=== PATIENT | female | born 1950 | race Caucasian/White ===

== ENCOUNTER 2018-10-09 12:16 | Inpatient (IN) | payer MEDICARE ==
[2018-10-09 12:58] LABS: #Lymphocytes 1.1 thou/uL (1.20-3.40); #Monocytes 0.8 thou/uL (0.11-0.59); #Neutrophils 12.1 thou/uL (1.40-6.50); %Basophils 0.2 % (0.0-1.0); %Eosinophils 0.3 % (0.0-10.0); %Lymphocytes 7.6 % (21.0-51.0); %Monocytes 5.7 % (0.0-10.0); %Neutrophils 86.2 % (42.0-75.0); Hemoglobin 13.9 g/dL (12.0-16.0); Mean Corpuscular HGB CONC 33.5 g/dL (32.0-36.0); Mean Corpuscular Hemoglobin 33.4 pg (27.0-31.0); Mean Corpuscular Volume 99.8 fL (78.0-98.0); Mean Platelet Volume 7.4 fL (7.4-10.4); Platelet Count 483 thou/uL (130-400); RBC Distribution Width 13.3 % (11.5-14.5); Red Blood Cell (RBC) Count 4.16 mill/uL (4.20-5.40); White Blood Cell (WBC) Count 14.1 thou/uL (4.8-10.8)
[2018-10-09 13:17] LABS: BUN (Urea Nitrogen) 41 mg/dL (9.8-20.1); Calc. Creatinine Clearance 0 mL/min (70-130); Calcium 8.1 mg/dL (7.8-10.44); Chloride 98 mmol/L (98-107); Estimated GFR-MDRD 23; Glucose 138 mg/dL (80-115); Potassium 3.6 mmol/L (3.5-5.1); Sodium 143 mmol/L (136-145)
[2018-10-09 13:21] LABS: Carbon Dioxide Less than 8 mmol/L (23-31)
[2018-10-09] MEDS ORDERED: Ondansetron PF 4 MG/2 ML Vial ONE (13:57)
[2018-10-09] MEDS ORDERED: Ondansetron ODT 4 MG TAB ONE (13:59)
[2018-10-09 14:13] LABS: Acetaminophen Less than 6.0 mcg/mL (10.0-30.0); Alcohol 211 mg/dL (Less than 10); Salicylate Less than 8.0 mg/dL (15.0-30.0)
[2018-10-09 14:17] LABS: Actual Bicarbonate (HCO3a) 5.8 mEq/L (22-28); Analyzer IN Cardio ER; Base Excess (BEa) -20.3 mEq/L (-2.0 to +3.0); Calcium, Ionized 0.99 mmol/L (1.12-1.30); Carboxyhemoglobin (COHb) 0.3 gm% (0.0-3.0); Hemoglobin (Hb) 13.5 g/dL (12.0-16.0); O2 Tension (PaO2) 103.7 mmHg (> 80.0); Potassium - ABG Lab 3.58 mmol/L (3.70-5.30)
[2018-10-09 14:18] LABS: CO2 Tension 16.2 mmHg (35.0-45.0); Puncture Site LB; pH, Arterial 7.18 (7.35-7.45)
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
--- NOTE | 2018-10-09 16:16 | RAD ---
AP view chest. HISTORY: Anxiety, chest pain. AP view chest obtained. EKG leads seen over the chest. Pedicle screws and surgical hardware seen in the row lower thoracic spine. Left-sided pleural effusion and pleural scarring seen. The right lung is well aerated. IMPRESSION: Patchy areas of density in the left lung base compatible with possible scar, atelectasis and/or pneumonia. There also appears to be a left-sided pleural effusion or left pleural scarring.
[2018-10-09 16:23] VITALS: BMI 18.8
[2018-10-09] MEDS: SODIUM BICARBONATE IV SCH (17:22)
[2018-10-09] MEDS: DEXTROSE IV SCH (17:22)
[2018-10-09] MEDS: NACL IV SCH (17:22)
[2018-10-09 17:26] LABS: Amphetamine Not Detected (NotDetected); Barbiturates Screen Not Detected (NotDetected); Benzodiazepine Screen Not Detected (NotDetected); Cocaine Metabolite Screen Not Detected (NotDetected); Medtox Control Line Valid? VALID (VALID); Medtox Reader # READER 4; Methadone Not Detected (NotDetected); Methamphetamine Not Detected (NotDetected); Opiate Screen Not Detected (NotDetected); Oxycodone Screen Not Detected (NotDetected); Phencyclidine (PCP) Not Detected (NotDetected); THC/Cannabinoid Screen Not Detected (NotDetected); Tricyclic Screen Detected (NotDetected)
--- NOTE | 2018-10-09 17:27 | PDOC.EVN ---
Event Note - Event Note Event Note: now admit to large doses concentrated alcohol. start iv loezepam and banabag
[2018-10-09] MEDS: Lorazepam 2 MG/ML VIAL SLOW IVP PRN (17:34)
[2018-10-09] MEDS ORDERED: Sodium Bicarb 50 MEQ/50 ML Abboject 8.4% SYRINGE IVP SCH (18:30)
[2018-10-09] MEDS ORDERED: Sodium Bicarb 50 MEQ/50 ML VIAL IVP SCH (18:45)
[2018-10-09] MEDS: cefTRIAXone\\ROCEPHIN 1 GM in Sodium Chloride 0.9% 100 ML IVPB SCH (19:03)
[2018-10-09] MEDS: Ondansetron ODT 4 MG TAB PO PRN (19:03)
--- NOTE | 2018-10-09 19:13 | CON ---
DATE OF CONSULTATION: 10/09/2018 HISTORY OF PRESENT ILLNESS: Karina Colbert is a 68-year-old female from [place], who apparently sees physicians at . She has multiple medical problems, but probably chronic pain. She went to the ER in [place] with symptoms of nausea, vomiting, and acute renal failure. She was transferred over here after she was found to have apparently some coffee-ground emesis and she was acidotic. Her creatinine was 2.2. Alcohol level was 290. When asked her, she says she drinks normally 2 glasses of wine daily, but drank a 5th of whisky today. She has chronic pain in the back and leg from previous injury. She is apparently a nonsmoker. PAST MEDICAL HISTORY: Pertinent for anxiety, chronic pain, and diabetes. PREVIOUS SURGERIES: Multiple surgeries on the spine, surgeries on the leg multiple times, cholecystectomy, and . 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 ALLERGIES: PENICILLIN. SULFA APPARENTLY. SOCIAL HISTORY: Tobacco, none. Drugs, none. Alcohol, as noted. HOME MEDICATIONS: 1. Phenergan 25 for nausea. 2. Tylenol No. 3. She takes up to 3 tablets a day, though she tells me she took only one. REVIEW OF SYSTEMS: Otherwise, 10-point negative. PHYSICAL EXAMINATION: GENERAL: She is awake, alert, and responsive. VITAL SIGNS: Heart rate is 100, respiratory rate 21, saturation is 98% on room air, and blood pressure 130/80. She is on a bicarb drip. CHEST: Decreased breath sounds. No wheezing. CARDIAC: Normal S1, S2. No gallops. ABDOMEN: No masses. LABORATORY DATA: The pH was 7.18, pCO2 was 16, and PO2 was 103. Bicarb was less than 8, BUN/creatinine of 41/2.14. Lactic acid was 9.3. She has tricyclics in the screen. She had blood alcohol level 211, it was 290 in [place]. White count 14,000. IMPRESSION: Metabolic acidosis with lactic acidosis. Etiology, probably a combination of renal failure and alcoholic ketoacidosis. P rule out sepsis, chronic pain. Continue slow hydration. She appears to be in no distress. Clearly, she is not tachypneic or tachycardic. I will start empiric antibiotics on her. Otherwise, we will follow. Job ID: [id number]
[2018-10-09] MEDS: Acetaminophen 325 MG TAB PO PRN (19:20)
[2018-10-09] MEDS ORDERED: Sterile Water 10 ML VIAL FS PRN (20:38)
[2018-10-09] MEDS ORDERED: Ziprasidone 20 MG VIAL IM PRN (20:38)
[2018-10-09] MEDS ORDERED: traMADol HCl 50 MG TAB PO SCH (20:45)
[2018-10-09] MEDS: Zolpidem Tartrate 5 MG TAB PO PRN (21:17)
--- NOTE | 2018-10-09 22:26 | RAD ---
AP view chest. HISTORY: Central line placement. AP view chest demonstrates placement of a right jugular central line distal tip overlying the right a trium. EKG leads seen over the chest. Thoracic surgical hardware in place. The lungs are well aerated. No evidence of acute intrathoracic abnormality seen. IMPRESSION: interval placement of a right jugular central line.
--- NOTE | 2018-10-09 22:30 | PDOC.EVN ---
Event Note - Event Note Event Note: Central line procedure note: INDICATION: Inability to obtain peripheral IV access PROCEDURE SUMO WRESTLER: Dr. Marisela Lai/Dr. Keith Dean/Tito Rao ATTENDING PHYSICIAN: Dr. Tito Rao personally Supervised and Assisted. CONSENT: Consent was obtained from the patient prior to the procedure. Indications, risks , and benefits were explained at length including but not limited to risk of infection, bleeding, damage to nearby structures and possible pneumothorax. The patient verbally acknowledged these risks and consent was signed. PROCEDURE SUMMARY: A time out was performed. My hands were washed immediately prior to the procedure. I wore a surgical cap, mask with protective eyewear, full gown and sterile gloves throughout the procedure. The patient was placed in Trendelenburg position. Right neck region was prepped using chlorhexidine scrub and draped in sterile fashion using a full drape and sterile probe cover employed. The Internal Jugular vein was identified using the ultrasound. Anesthesia was achieved over the vein using 1% lidocaine. Using real-time ultasound guidance, the introducer needle was inserted into the Internal Jugular vein under direct ultrasound visualization. Venous blood was withdrawn. The syringe was removed and a guidewire was advanced into the introducer needle. The guidewire was visualized in the Internal Jugular Vein by ultrasound. A small incision was made at the skin surface with a scalpel and the introducer needle was exchanged for a dilator over the guidewire. After appropriate dilation was obtained, the dilator was exchanged over the wire for a triple lumen central venous catheter. The wire was removed. all three ports showed venous return adn were flushed with sterile saline. The catheter was sutured in place at ~15 cm. A sterile sorbaview shield was placed over the catheter at the insertion site. The patient tolerated the procedure without any hemodynamic compromise. At time of procedure completion, all ports aspirated and flushed properly. Post-procedure chest x-ray is pending at this time. Estimated blood loss is minimal.
--- NOTE | 2018-10-09 22:32 | PDOC.EVN ---
Event Note - Event Note Event Note: Right IJ Central Venous Catheter placed without complication. Placement confirmed by venous blood return with flush, as well as CXR confirmed placement and absence of pneumothorax. See resident note for details. Patient tolerated well.
[2018-10-09] MEDS: Multivitamins, Adult 10 ML, Folic Acid 1 MG, Thiamine HCl 100 MG in Dextrose 5 %-0.45 %... IV SCH (22:36)
[2018-10-09 22:54] LABS: Lactic Acid 1.8 mmol/L (0.5-2.2)
[2018-10-09 23:00] LABS: ALT (SGPT) 27 U/L (8-55); AST (SGOT) 81 U/L (5-34); Albumin 3.6 g/dL (3.4-4.8); Alkaline Phosphatase 95 U/L (40-150); Anion Gap 24 mmol/L (10-20); BUN (Urea Nitrogen) 40 mg/dL (9.8-20.1); Bilirubin, Total 0.8 mg/dL (0.2-1.2); Calc. Creatinine Clearance 22 mL/min (70-130); Calcium 7.4 mg/dL (7.8-10.44); Carbon Dioxide 18 mmol/L (23-31); Chloride 96 mmol/L (98-107); Estimated GFR-MDRD 27; Globulin 2.6 g/dL (2.4-3.5); Glucose 331 mg/dL (80-115); Potassium 3.1 mmol/L (3.5-5.1); Protein, Total 6.2 g/dL (6.0-8.3); Sodium 135 mmol/L (136-145)
[2018-10-10] MEDS: Lorazepam 2 MG/ML VIAL SLOW IVP PRN (00:07)
[2018-10-10 05:09] LABS: #Lymphocytes 0.7 thou/uL (1.20-3.40); #Monocytes 0.3 thou/uL (0.11-0.59); #Neutrophils 7.6 thou/uL (1.40-6.50); %Basophils 0.3 % (0.0-1.0); %Eosinophils 0.2 % (0.0-10.0); %Lymphocytes 7.8 % (21.0-51.0); %Monocytes 3.9 % (0.0-10.0); %Neutrophils 87.8 % (42.0-75.0); Hemoglobin 11.1 g/dL (12.0-16.0); Mean Corpuscular HGB CONC 34.3 g/dL (32.0-36.0); Mean Corpuscular Volume 96.1 fL (78.0-98.0); Mean Platelet Volume 7.1 fL (7.4-10.4); Platelet Count 317 thou/uL (130-400); RBC Distribution Width 13.2 % (11.5-14.5); Red Blood Cell (RBC) Count 3.36 mill/uL (4.20-5.40); White Blood Cell (WBC) Count 8.6 thou/uL (4.8-10.8)
[2018-10-10] MEDS: SODIUM BICARBONATE IV SCH ×2 (05:59→10:11)
[2018-10-10] MEDS: NACL IV SCH ×2 (05:59→10:11)
[2018-10-10] MEDS: traMADol HCl 50 MG TAB PO SCH ×4 (05:59→23:30)
[2018-10-10] MEDS: DEXTROSE IV SCH ×2 (05:59→10:11)
[2018-10-10 07:38] LABS: Anion Gap 15 mmol/L (10-20); BUN (Urea Nitrogen) 29 mg/dL (9.8-20.1); Calc. Creatinine Clearance 28 mL/min (70-130); Calcium 7.1 mg/dL (7.8-10.44); Carbon Dioxide 32 mmol/L (23-31); Chloride 92 mmol/L (98-107); Estimated GFR-MDRD 36; Glucose 261 mg/dL (80-115); Sodium 136 mmol/L (136-145)
[2018-10-10 07:42] LABS: Potassium 2.5 mmol/L (3.5-5.1)
--- NOTE | 2018-10-10 09:03 | PRG ---
DATE OF SERVICE: 10/10/2018 SUBJECTIVE: This morning, she is awake, alert, and responsive. She is better. OBJECTIVE: VITAL SIGNS: Blood pressure 118/89, temperature 99, sat 95%. GENERAL: No distress. CHEST: Decreased breath sounds. No wheezing. CARDIAC: Normal S1 and S2. No gallops. ABDOMEN: No masses. LABORATORY DATA: Her bicarb has improved to 32. Anion gap is back to normal. BUN and creatinine 29 and 1.45. Azotemia improved. IMPRESSION: 1. Alcoholic ketoacidosis. 2. History of alcohol abuse. 3. Chronic pain. PLAN: acidosis resolved, _ discontinue the IV bicarb. Continue PT. Hopefully , she can be discharged later on today. She has remained stable. Replace electrolytes. We will follow. Job ID: [id number] [facility]
[2018-10-10] MEDS: Dextrose 5 %-0.45 % NaCl 1,000 ML IV SCH ×2 (09:54→23:31)
[2018-10-10] MEDS: Pot Chloride/Pot Bicarb/Cit Ac 25 mEq Effervescent Tablet PO SCH ×2 (09:54→20:16)
--- NOTE | 2018-10-10 11:02 | PDOC.PN ---
- Subjective Encounter Start Date: 10/10/18 Encounter Start Time: 11:01 Ms. Hassan was seen today in follow-up of Alcoholic ketoacidosis. She says she feels weak. She also says the potassium made her nauseated. - Objective Resuscitation Status - Order Detail: 10/09/18 14:46 Resuscitation Status Routine Resuscitation Status: FULL: Full Resuscitation MAR Reviewed: Yes Vital Signs & Weight: Vital Signs (12 hours) Temp BP Pulse Ox 10/10/18 10:53 97.8 F 10/10/18 08:00 125/85 95 10/10/18 07:16 99.4 F 10/10/18 04:00 126/81 10/10/18 03:56 99.4 F 10/10/18 00:00 99.4 F Weight Weight 103 lb 6.4 oz Most Recent Monitor Data Heart Rate from ECG 100 NIBP 129/86 NIBP BP-Mean 100 Respiration from ECG 19 SpO2 94 I&O: 10/09/18 10/10/18 10/11/18 06:59 06:59 06:59 Intake Total 2970 Output Total 1575 Balance 1395 Result Diagrams: 10/10/18 04:45 10/10/18 07:04 Phys Exam - Physical Examination HEENT: PERRLA Respiratory: no wheezing, no rales, no rhonchi, clear to auscultation bilateral Cardiovascular: RRR, no significant murmur, no rub Gastrointestinal: soft, non-tender, no distention, positive bowel sounds Musculoskeletal: no edema, pulses present Neurological: non-focal, normal sensation, moves all 4 limbs Dx/Plan (1) Alcoholic ketoacidosis Code(s): E87.2 - ACIDOSIS Status: Acute (2) Hypokalemia Code(s): E87.6 - HYPOKALEMIA Status: Acute (3) Acute kidney injury Code(s): N17.9 - ACUTE KIDNEY FAILURE, UNSPECIFIED Status: Acute - Plan * Alcoholic ketoacidosis- continue IV hydration- this is resolving * Acute kidney injury- improving with hydration * Hypokalemia- will replace- and check serum magnesium- I suspect this is due to nutritional deficiency * Alcohol abuse- continue DT precautions, and will add Thiamine and folic acid * PT.
[2018-10-10 11:58] LABS: Anion Gap 14 mmol/L (10-20); BUN (Urea Nitrogen) 26 mg/dL (9.8-20.1); Calc. Creatinine Clearance 34 mL/min (70-130); Calcium 7.3 mg/dL (7.8-10.44); Carbon Dioxide 34 mmol/L (23-31); Chloride 90 mmol/L (98-107); Estimated GFR-MDRD 44; Glucose 172 mg/dL (80-115); Magnesium 1.7 mg/dL (1.6-2.6); Potassium 3.2 mmol/L (3.5-5.1); Sodium 135 mmol/L (136-145)
[2018-10-10] MEDS: Ondansetron ODT 4 MG TAB PO PRN (16:17)
[2018-10-10] MEDS: Multivitamins, Adult 10 ML, Folic Acid 1 MG, Thiamine HCl 100 MG in Dextrose 5 %-0.45 %... IV SCH (18:00)
[2018-10-10] MEDS: cefTRIAXone\\ROCEPHIN 1 GM in Sodium Chloride 0.9% 100 ML IVPB SCH (18:00)
[2018-10-10 18:32] LABS: Anion Gap 13 mmol/L (10-20); BUN (Urea Nitrogen) 20 mg/dL (9.8-20.1); Calc. Creatinine Clearance 42 mL/min (70-130); Calcium 7.5 mg/dL (7.8-10.44); Carbon Dioxide 36 mmol/L (23-31); Chloride 91 mmol/L (98-107); Estimated GFR-MDRD 57; Glucose 171 mg/dL (80-115); Sodium 137 mmol/L (136-145)
[2018-10-10 18:36] LABS: Potassium 2.8 mmol/L (3.5-5.1)
[2018-10-10] MEDS ORDERED: Potassium Chloride 40 MEQ/100 ML PREMIX BAG ONE (18:56)
[2018-10-10] MEDS ORDERED: Potassium Chloride 40 MEQ in Premix Bag 1 BAG IVPB SCH (19:00)
[2018-10-10] MEDS: Promethazine 25 MG TAB PO PRN (20:57)
[2018-10-10] MEDS: Zolpidem Tartrate 5 MG TAB PO PRN (22:23)
[2018-10-11] MEDS: traMADol HCl 50 MG TAB PO SCH ×4 (05:23→23:50)
[2018-10-11 06:02] LABS: #Lymphocytes 1.6 thou/uL (1.20-3.40); #Monocytes 0.3 thou/uL (0.11-0.59); #Neutrophils 5.9 thou/uL (1.40-6.50); %Basophils 0.5 % (0.0-1.0); %Eosinophils 0.3 % (0.0-10.0); %Lymphocytes 20.8 % (21.0-51.0); %Monocytes 3.2 % (0.0-10.0); %Neutrophils 75.2 % (42.0-75.0); Hemoglobin 11.3 g/dL (12.0-16.0); Mean Corpuscular HGB CONC 32.8 g/dL (32.0-36.0); Mean Corpuscular Hemoglobin 32.1 pg (27.0-31.0); Mean Corpuscular Volume 97.7 fL (78.0-98.0); Mean Platelet Volume 7.2 fL (7.4-10.4); Platelet Count 218 thou/uL (130-400); RBC Distribution Width 13.1 % (11.5-14.5); Red Blood Cell (RBC) Count 3.52 mill/uL (4.20-5.40); White Blood Cell (WBC) Count 7.8 thou/uL (4.8-10.8)
[2018-10-11 06:03] LABS: ALT (SGPT) 19 U/L (8-55); AST (SGOT) 49 U/L (5-34); Albumin 3.3 g/dL (3.4-4.8); Alkaline Phosphatase 84 U/L (40-150); Anion Gap 11 mmol/L (10-20); BUN (Urea Nitrogen) 10 mg/dL (9.8-20.1); Bilirubin, Total 0.7 mg/dL (0.2-1.2); Calc. Creatinine Clearance 49 mL/min (70-130); Calcium 7.5 mg/dL (7.8-10.44); Carbon Dioxide 35 mmol/L (23-31); Chloride 92 mmol/L (98-107); Estimated GFR-MDRD 68; Globulin 2.5 g/dL (2.4-3.5); Glucose 117 mg/dL (80-115); Magnesium 1.3 mg/dL (1.6-2.6); Protein, Total 5.8 g/dL (6.0-8.3); Sodium 135 mmol/L (136-145)
[2018-10-11 06:07] LABS: Potassium 2.9 mmol/L (3.5-5.1)
[2018-10-11] MEDS ORDERED: Magnesium 2 GM/50 ML 2 GM in Premix Bag 1 BAG IVPB SCH (08:15)
[2018-10-11] MEDS ORDERED: Promethazine HCl 25 MG/ML VIAL IVPB PRN (08:23)
[2018-10-11] MEDS ORDERED: Potassium Chloride 40 MEQ in Sodium Chloride 0.9% 250 ML 250 ML IVPB SCH (09:00)
[2018-10-11] MEDS: D5 1/2 NS w/20 mEq KCL 1,000 ML IV SCH (09:33)
[2018-10-11] MEDS: Folic Acid 1 MG TAB PO SCH (09:34)
[2018-10-11] MEDS: Thiamine 100 MG TAB PO SCH (09:34)
[2018-10-11] MEDS: Pot Chloride/Pot Bicarb/Cit Ac 25 mEq Effervescent Tablet PO SCH ×2 (09:34→20:18)
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
--- NOTE | 2018-10-11 09:48 | PRG ---
DATE OF SERVICE: 10/11/2018 SUBJECTIVE: Karina Colbert is a 68-year-old female with alcoholic related issues and chronic nausea, who presented with severe acidosis, metabolic, probably felt to be secondary to alcohol intoxication. She has been nauseated and vomited several times last night. OBJECTIVE: VITAL SIGNS: Saturations are 98% on room air, temperature 98, blood pressure 129/89, respiratory rate 18. CHEST: Decreased breath sounds. No wheezing. CARDIAC: Normal S1 and S2. No gallops. ABDOMEN: No masses. LABORATORY DATA: Potassium 2.9 and bicarb is now 35. Lytes otherwise normal. IMPRESSION: 1. Persistent nausea, a chronic issue, which has worsened with the recent excessive alcohol intake. 2. Chronic pain. PLAN: Discontinue the antibiotics infection. Continue IV fluids. IV Phenergan was given. Hopefully, she can be discharged home once the nausea and vomiting improved. Job ID: [id number]
[2018-10-11] MEDS: Promethazine HCl 12.5 MG in Sodium Chloride 0.9% 50 ML IVPB PRN (10:43)
[2018-10-11] MEDS: Multivitamins, Adult 10 ML, Folic Acid 1 MG, Thiamine HCl 100 MG in Dextrose 5 %-0.45 %... IV SCH (17:33)
[2018-10-11] MEDS: Acetaminophen 325 MG TAB PO PRN (20:19)
[2018-10-11] MEDS: Zolpidem Tartrate 5 MG TAB PO PRN (23:50)
[2018-10-12] MEDS: Promethazine HCl 12.5 MG in Sodium Chloride 0.9% 50 ML IVPB PRN (00:57)
[2018-10-12] MEDS: Promethazine 25 MG TAB PO PRN (05:23)
[2018-10-12] MEDS: traMADol HCl 50 MG TAB PO SCH ×2 (05:23→12:22)
[2018-10-12] MEDS: D5 1/2 NS w/20 mEq KCL 1,000 ML IV SCH (05:24)
[2018-10-12 06:07] LABS: Anion Gap 9 mmol/L (10-20); BUN (Urea Nitrogen) 6 mg/dL (9.8-20.1); Calc. Creatinine Clearance 59 mL/min (70-130); Calcium 8.3 mg/dL (7.8-10.44); Carbon Dioxide 28 mmol/L (23-31); Chloride 102 mmol/L (98-107); Estimated GFR-MDRD 85; Glucose 106 mg/dL (80-115); Magnesium 1.8 mg/dL (1.6-2.6); Potassium 3.6 mmol/L (3.5-5.1); Sodium 135 mmol/L (136-145)
[2018-10-12 07:29] VITALS: BP 150/90
[2018-10-12] MEDS: Thiamine 100 MG TAB PO SCH (08:32)
[2018-10-12] MEDS: Folic Acid 1 MG TAB PO SCH (08:32)
[2018-10-12] MEDS: Pot Chloride/Pot Bicarb/Cit Ac 25 mEq Effervescent Tablet PO SCH (08:32)
--- NOTE | 2018-10-12 08:55 | PRG ---
DATE OF SERVICE: 10/12/2018 SUBJECTIVE: This morning, much better. No further nausea or vomiting. She is eating breakfast. Less pain. OBJECTIVE: VITAL SIGNS: Blood pressure 150/90, temperature 97, pulse 77, respiratory rate on room air. CHEST: No wheezing or crackles. CARDIAC: Normal S1 and S2. No gallops. ABDOMEN: No masses. LABORATORY DATA: Unremarkable. Bicarb was 28. IMPRESSION: 1. Severe metabolic acidosis secondary to alcohol abuse, stable. 2. Chronic pain. PLAN: She is stable enough to be discharged home. Follow up with the primary care physician. She needs counseling regarding alcohol abuse. Job ID: [id number]
--- NOTE | 2018-10-12 09:47 | PDOC.PN ---
- Subjective Encounter Start Date: 10/12/18 Encounter Start Time: 09:45 Ms. Colbert was seen today in follow-up of Alcoholic ketoacidosis. She does not have any new complaints. - Objective Resuscitation Status - Order Detail: 10/09/18 14:46 Resuscitation Status Routine Resuscitation Status: FULL: Full Resuscitation MAR Reviewed: Yes Vital Signs & Weight: Vital Signs (12 hours) Temp BP 10/12/18 07:25 150/90 H 10/12/18 07:24 97.9 F 10/12/18 04:08 109/75 10/12/18 03:15 97.2 F L 10/12/18 00:03 98/67 10/11/18 23:13 98.0 F Weight Admit Weight 103 lb 6.4 oz Weight 103 lb 6.4 oz Most Recent Monitor Data Heart Rate from ECG 87 NIBP 124/79 NIBP BP-Mean 94 Respiration from ECG 14 SpO2 99 I&O: 10/11/18 10/12/18 10/13/18 06:59 06:59 06:59 Intake Total 4146 3710 Output Total 2300 2650 Balance 1846 1060 Result Diagrams: 10/11/18 05:20 10/12/18 04:53 Phys Exam - Physical Examination HEENT: PERRLA, sclera anicteric Respiratory: no wheezing, no rales, no rhonchi, clear to auscultation bilateral Cardiovascular: RRR, no significant murmur, no rub Gastrointestinal: soft, non-tender, no distention, positive bowel sounds Musculoskeletal: no edema, pulses present Neurological: non-focal, normal sensation, moves all 4 limbs Dx/Plan (1) Alcoholic ketoacidosis Code(s): E87.2 - ACIDOSIS Status: Acute (2) Hypokalemia Code(s): E87.6 - HYPOKALEMIA Status: Acute (3) Acute kidney injury Code(s): N17.9 - ACUTE KIDNEY FAILURE, UNSPECIFIED Status: Acute - Plan * Alcoholic ketoacidosis- resolved * Hypokalemia- improved * She is stable for discharge home today.
[2018-10-12 15:33] VITALS: TEMP 97.6
--- NOTE | 2018-10-13 02:27 | DIS ---
DATE OF ADMISSION: 10/09/2018 DATE OF DISCHARGE: 10/12/2018 DISCHARGE DIAGNOSES: 1. Alcoholic ketoacidosis. 2. Alcohol abuse. DISCHARGE MEDICATIONS: Include; 1. Thiamine 100 mg p.o. daily. 2. Folic acid 1 mg p.o. daily. CODE STATUS: Full code. ALLERGIES: PENICILLIN AND SULFA. HOSPITAL COURSE: Ms. Colbert is a pleasant, 68-year-old female, who presented to the emergency room due to concerns of symptoms similar to a panic attack. She was evaluated in the ER and found to have a high serum alcohol level of 211, and also she was noted to be severely acidotic with a bicarb less than 8 on admission as well as acute kidney injury. She was admitted for alcoholic ketoacidosis and acute kidney injury. She responded to IV fluids as well as being placed on thiamine and folic acid. She had some electrolyte disturbances which were corrected with regard to the hypokalemia and hypomagnesemia. Once stabilized, she was able to be discharged home with close outpatient followup. Job ID: [id number]
== END 2018-10-12 15:55 | disposition home or self-care (01) | DRG 683 ==
LOC: ERS 12:16 → IMCU/EMU 13:38
PROVIDERS: ADMIT Internal Medicine; ATTEND Internal Medicine
PROC: 02H633Z Insertion of Infusion Device into Right Atrium, Percutaneous Approach (ICD-10-PCS; principal; 2018-10-09)
PROC: B244ZZZ Ultrasonography of Right Heart (ICD-10-PCS; 2018-10-09)
DX: N17.9 Acute kidney failure, unspecified (principal); E87.2 Acidosis; E87.6 Hypokalemia; F10.129 Alcohol abuse with intoxication, unspecified; G31.2 Degeneration of nervous system due to alcohol; F41.9 Anxiety disorder, unspecified; F32.9 Major depressive disorder, single episode, unspecified; G89.4 Chronic pain syndrome; Y90.8 Blood alcohol level of 240 mg/100 ml or more; Z90.49 Acquired absence of other specified parts of digestive tract; Z90.710 Acquired absence of both cervix and uterus; Z88.0 Allergy status to penicillin; Z88.2 Allergy status to sulfonamides
CPT/HCPCS: 36415; 71045; 80048; 80053; 80306; 80307; 82805; 83605; 83735; 85025; 87040; 87086; 96360; J0696; J2060; J2405; J2550; J3411; J3475; J3480; J3486; J3490; J7042; J7050; Q0162; Q0169